=== PATIENT | male | born 1960 | race Caucasian/White ===

== ENCOUNTER 2016-09-02 13:05 | Day surgery (SDC) | payer OTHER ==
[~2016-09-02] VITALS: Ht 177.8 cm; Wt 159.3 kg
[2016-09-02 13:43] VITALS: BP 140/86; PULSE 92; TEMP 98.8
[2016-09-02] MEDS ORDERED: EFFEXOR 75M75 MG/TAB PO (14:14)
[2016-09-02] MEDS ORDERED: UREA 40% TP (14:16)
[2016-09-02] MEDS ORDERED: ZOCOR 40MG40 MG PO (14:16)
[2016-09-02] MEDS ORDERED: FLOMAX 0.40.4 MG/CAP PO (14:16)
[2016-09-02] MEDS ORDERED: ALDACTONE 25MG25 M1 PO (14:16)
[2016-09-02] MEDS ORDERED: LYRICA 150MG C150 MG PO (14:17)
[2016-09-02] MEDS ORDERED: SEROQUEL50 MG PO (14:17)
[2016-09-02] MEDS ORDERED: MINIPRESS 5M5 MG/CAP PO (14:18)
[2016-09-02] MEDS ORDERED: GOOD NEIGHBOR P1 CRE TP (14:18)
[2016-09-02] MEDS ORDERED: ROBAXIN 50500 MG/TAB PO (14:18)
[2016-09-02] MEDS ORDERED: SINEQUAN75 MG PO (14:19)
[2016-09-02] MEDS ORDERED: VOLTAREN 75 DR75 MG PO (14:20)
[2016-09-02] MEDS ORDERED: DEPAKOTE ER 50500 MG PO (14:20)
[2016-09-02] MEDS ORDERED: DULCOLAX STOOL100 MG PO (14:21)
[2016-09-02] MEDS ORDERED: ZYRTEC10MGSGL PO (14:21)
[2016-09-02 16:10] VITALS: BP 123/80; PULSE 86; TEMP 97.5
[2016-09-02 17:22] VITALS: BP 126/88; PULSE 85
== END 2016-09-02 16:46 | disposition home or self-care (01) ==
LOC: SDCO 13:05
DX: K29.80 Duodenitis without bleeding (principal); K21.9 Gastro-esophageal reflux disease without esophagitis; R19.5 Other fecal abnormalities; D50.0 Iron deficiency anemia secondary to blood loss (chronic); I10 Essential (primary) hypertension; E78.00 Pure hypercholesterolemia, unspecified; J44.9 Chronic obstructive pulmonary disease, unspecified; E66.01 Morbid (severe) obesity due to excess calories; F41.9 Anxiety disorder, unspecified; F32.9 Major depressive disorder, single episode, unspecified; Z79.899 Other long term (current) drug therapy
CPT/HCPCS: J2250; J3010; J7030

== ENCOUNTER → 2017-03-24 | Outpatient (CLI) | payer OTHER ==
[~2017-03-24] MED LIST: ALDACTONE 25MG25 M1 PO; DEPAKOTE ER 50500 MG PO; DULCOLAX STOOL100 MG PO; EFFEXOR 75M75 MG/TAB PO; FLOMAX 0.40.4 MG/CAP PO; GOOD NEIGHBOR P1 CRE TP; LYRICA 150MG C150 MG PO; MINIPRESS 5M5 MG/CAP PO; ROBAXIN 50500 MG/TAB PO; SEROQUEL50 MG PO; SINEQUAN75 MG PO; UREA 40% TP; VOLTAREN 75 DR75 MG PO; ZOCOR 40MG40 MG PO; ZYRTEC10MGSGL PO
== END ==
LOC: MHCPAIN 10:22
DX: G89.29 Other chronic pain (principal); M47.27 Other spondylosis with radiculopathy, lumbosacral region; F17.220 Nicotine dependence, chewing tobacco, uncomplicated
CPT/HCPCS: G0463

== ENCOUNTER → 2017-05-09 | Outpatient (CLI) | payer OTHER | LOC: MHCPAIN 09:49 | DX: G89.29 Other chronic pain (principal); M47.27 Other spondylosis with radiculopathy, lumbosacral region; M53.3 Sacrococcygeal disorders, not elsewhere classified; F17.220 Nicotine dependence, chewing tobacco, uncomplicated | CPT/HCPCS: G0463 ==

== ENCOUNTER → 2017-05-11 | Outpatient (CLI) | payer OTHER | LOC: MHCPAIN 13:47 | DX: M47.817 Spondylosis without myelopathy or radiculopathy, lumbosacral region (principal) | CPT/HCPCS: J1040; Q9967 ==

== ENCOUNTER → 2017-06-16 | Outpatient (CLI) | payer OTHER | LOC: MHCPAIN 11:31 | DX: G89.29 Other chronic pain (principal); M47.27 Other spondylosis with radiculopathy, lumbosacral region; M53.3 Sacrococcygeal disorders, not elsewhere classified; F17.220 Nicotine dependence, chewing tobacco, uncomplicated | CPT/HCPCS: G0463 ==

== ENCOUNTER → 2017-07-13 | Outpatient (CLI) | payer OTHER | LOC: MHCPAIN 13:34 | DX: M47.817 Spondylosis without myelopathy or radiculopathy, lumbosacral region (principal) ==

== ENCOUNTER → 2017-07-18 | Outpatient (CLI) | payer OTHER | LOC: MHCPAIN 12:25 | DX: G89.29 Other chronic pain (principal); M47.27 Other spondylosis with radiculopathy, lumbosacral region; M53.3 Sacrococcygeal disorders, not elsewhere classified; M96.1 Postlaminectomy syndrome, not elsewhere classified; F17.200 Nicotine dependence, unspecified, uncomplicated | CPT/HCPCS: G0463 ==

== ENCOUNTER → 2017-08-17 | Outpatient (CLI) | payer OTHER | LOC: MHCPAIN 12:02 | DX: M47.27 Other spondylosis with radiculopathy, lumbosacral region (principal) | CPT/HCPCS: J1100; Q9967 ==

== ENCOUNTER → 2017-11-15 | Outpatient (CLI) | payer OTHER | LOC: MHCPAIN 12:24 | DX: G89.29 Other chronic pain (principal); M47.817 Spondylosis without myelopathy or radiculopathy, lumbosacral region; M54.16 Radiculopathy, lumbar region; M53.3 Sacrococcygeal disorders, not elsewhere classified | CPT/HCPCS: G0463 ==

== ENCOUNTER → 2017-11-23 | Outpatient (CLI) | payer OTHER | LOC: MHCPAIN 09:40 | DX: M47.817 Spondylosis without myelopathy or radiculopathy, lumbosacral region (principal); M51.26 Other intervertebral disc displacement, lumbar region | CPT/HCPCS: J1040; Q9967 ==

== ENCOUNTER 2021-08-13 08:34 | Day surgery (SDC) | payer OTHER ==
[~2021-08-13] VITALS: Ht 177.8 cm; Wt 130.5 kg
[2021-08-13] MEDS ORDERED: TYLENOL 325MG325 MG PO (10:47)
[2021-08-13] MEDS ORDERED: ALBUTEROL0.83 MG/ML IH (10:48)
[2021-08-13] MEDS ORDERED: GENTLE LAXATIVE5 MG PO (10:49)
[2021-08-13] MEDS ORDERED: BUSPAR 30MG30 MG/TAB PO (10:49)
[2021-08-13] MEDS ORDERED: VITAMIN B12 1541 TAB PO (10:50)
[2021-08-13] MEDS ORDERED: PERIACTIN 4MG TA4 MG PO (10:50)
[2021-08-13] MEDS ORDERED: DEPAKOTE500 MG PO (10:51)
[2021-08-13] MEDS ORDERED: VITAMIN D 50,1.25 MG PO (10:53)
[2021-08-13] MEDS ORDERED: LODINE400 MG PO (10:54)
[2021-08-13] MEDS ORDERED: RT ADVAIR 228 DISKUS IH (10:55)
[2021-08-13] MEDS ORDERED: FLOVENT DI50 MCG/Act IH (10:55)
[2021-08-13] MEDS ORDERED: NORCO 325 MG-51 TAB PO (10:56)
[2021-08-13] MEDS ORDERED: LASIX 20MG TABL20 MG PO (10:56)
[2021-08-13] MEDS ORDERED: RECTICARE5% RC (10:57)
[2021-08-13] MEDS ORDERED: SAXENDA6 MG/ML SQ (10:57)
[2021-08-13] MEDS ORDERED: ROBAXIN 50500 MG/TAB PO (10:58)
[2021-08-13] MEDS ORDERED: NITROSTAT0.4 MG/TAB SL (10:59)
[2021-08-13] MEDS ORDERED: TOPROL XL 50MG50 MG PO (10:59)
[2021-08-13] MEDS ORDERED: LYRICA 150MG C150 MG PO (11:00)
[2021-08-13] MEDS ORDERED: MIRALAX PA17 GM/Dose PO (11:00)
[2021-08-13] MEDS ORDERED: ALDACTONE 25MG25 M1 PO (11:01)
[2021-08-13] MEDS ORDERED: IMITREX 6M6 MG/0.5 M SQ (11:01)
[2021-08-13] MEDS ORDERED: FLOMAX 0.40.4 MG/CAP PO (11:02)
[2021-08-13] MEDS ORDERED: TOPAMAX 100MG100 M1 PO (11:03)
[2021-08-13] MEDS ORDERED: DESYREL 100MG100 MG PO (11:03)
[2021-08-13] MEDS ORDERED: EFFEXOR-XR150 MG PO (11:04)
[2021-08-13] MEDS ORDERED: ZYLOPRIM 100MG100 MG PO (11:04)
[2021-08-13] MEDS ORDERED: LIPITOR 80MG80 MG PO (11:05)
[2021-08-13] MEDS ORDERED: ZYRTEC 10MG10 MG PO (11:06)
[2021-08-13] MEDS ORDERED: MASON NATURAL2000 IU PO (11:06)
[2021-08-13] MEDS ORDERED: LAMICTAL150 MG PO (11:07)
[2021-08-13] MEDS ORDERED: KEPPRA1000 MG PO (11:09)
[2021-08-13 11:10] VITALS: BP 115/74; PULSE 67; TEMP 98.1
[2021-08-13 12:00] VITALS: BP 120/72; PULSE 72; TEMP 97.6
[2021-08-13 12:15] VITALS: BP 116/76; PULSE 88; TEMP 97.7
[2021-08-13 12:30] VITALS: BP 119/73; PULSE 91; TEMP 97.4
--- NOTE | 2021-08-13 13:30 | NUR ---
1200 Pt returns from endo procedure via cart and RN assist to [facility] [place] [facility]. Pt ambulates from cart to recliner with RN assist. Monitors on and alarms set. Call light within reach. Report received from ?, RN. Pt alert and oriented. Pt requests WATER AND A MUFFIN. Pt denies any pain or nausea. 1215 Pt taking food and drink well. No complications noted. 1250 IV SITE TAKEN OUT. 1255 Discharge instructions given to pt. All questions answered to HIS satisfaction. Handed to pt are a thank you card and discharge information. ? Pt transferred out of the hospital via wheelchair and ? assist, to private vehicle driven by ?.
== END 2021-08-13 13:00 | disposition home or self-care (01) ==
LOC: SDCO 08:34
DX: K92.1 Melena (principal); K57.30 Diverticulosis of large intestine without perforation or abscess without bleeding; Z86.010 Personal history of colon polyps; G47.33 Obstructive sleep apnea (adult) (pediatric); R56.9 Unspecified convulsions; Z99.81 Dependence on supplemental oxygen
CPT/HCPCS: J2704; J7030